=== PATIENT | male | born 1940 | race Caucasian/White ===

== ENCOUNTER 2018-04-15 06:44 | Observation (INO) ==
--- NOTE | 2018-04-15 08:31 | Pre Anesthesia Assessment ---
Date of Service April 15, 2018 Pre Sedation Assessment Vital Signs Temp Pulse Resp BP Pulse Ox 04/15/18 07:32 36.6 C 66 18 133/67 98 Cardiovascular RRR, no murmur, no edema Respiratory normal respiratory effort, lungs clear to auscultation Pre-Sedation Airway Assessment Smoking Status: Former smoker Hx Sleep Apnea: No Short, Thick Neck: No Thyromental Distance: > or= 3.5 Finger Breadths Oral Cavity: + WNL Mallampati Class: IV ASA: ASA3 NPO Status Date of Last Intake of Fluids: 04/14/18 Time of Last Intake of Fluids: 21:00 Date of Last Intake of Solid Food: 04/14/18 Time of Last Intake of Solid Foods: 21:00 Procedure Planning Current Medications Reviewed: Yes Notes The planned sedation has been discussed with the patient. Informed Consent was obtained. I have identified the patient, determined the appropriateness of sedation and have assessed the patient immediately prior to the procedure. All medicine(s) and interventions are by my order.
--- NOTE | 2018-04-15 08:31 | History & Physical Bridge Note ---
Date of Service April 15, 2018 History & Physical Bridge Note I have examined the patient, reviewed the History & Physical and in the interval since the performance of the History & Physical I have noted the following changes of clinical significance: no changes noted
[2018-04-15] MEDS ORDERED: fentaNYL citrate 100 MCG/2 ML VIAL ONE (08:32)
[2018-04-15] MEDS ORDERED: NiCARDipine HCL INJ 2.5 MG/ML 10 ML AMP ONE (08:32)
[2018-04-15] MEDS ORDERED: HEPARIN (PORCINE) 1000 UNIT/ML 10 ML (CATH LAB USE ONLY) ONE (08:32)
[2018-04-15] MEDS ORDERED: MIDAZOLAM HCL 1 MG/ML 2ML VIAL ONE (08:32)
[2018-04-15] MEDS ORDERED: NITROGLYCERIN/D5W 100MCG/ML 20ML SYR ONE (08:33)
--- NOTE | 2018-04-15 09:41 | Cardiac Catheterization ---
Cardiac Cath Procedure: Brief Procedure Date April 15, 2018 Pre-Procedure Diagnosis Pre-Procedure Diagnosis: Angina and Positive Stress Test AUC Score AUC Score: 8 Post-Procedure Diagnosis Post-Procedure Diagnosis: Severe CAD (Two-vessel) Procedure(s) Performed Procedure(s) Performed: Coronary Angiography Agricultural Produce Sorter Kai Yap MD Drilling Machine Runner(s) Prudencio Mendosa RN Estimated Blood Loss Estimated Blood Loss: <15cc Medication(s) Medication(s): Fentanyl (12.5 mcg IV), Heparin, Lidocaine 1% (Local infiltration access site), Nicardipine (300 mcg intra-arterial after arterial sheath placed) and Versed (1 mg IV) Preliminary Findings Right dominant coronary anatomy Two-vessel coronary artery disease with preserved LV systolic function by echocardiogram 100% proximal occlusion of the left circumflex with collateral filling via right -to-left collaterals 95% mid left anterior descending stenosis Left main: Long and large caliber with 20% distal stenosis Left anterior descending: Type II vessel giving rise to a small diffusely diseased first diagonal in its proximal portion and a second large diagonal at the end of its midportion. Within the left anterior descending there is moderate irregularities throughout its proximal third and there is a discrete 95 % stenosis in its midportion proximal to the large second diagonal branch. Left circumflex: Vessel is nondominant. It gives rise to a trivial first marginal branch and a very small second marginal branch then has a 100% occlusion all very shortly after its origin. A large bifurcating obtuse marginal may be seen filling retrograde on injections of the right coronary artery Right coronary artery: Large and dominant distribution. It gives rise to a sinoatrial branch, conus branch, and a large right ventricular branch in its midportion. At the AV groove it gives rise to a large long posterior descending artery reaching to the apex, and along the AV groove two large posterior ventricular branches. Within the right coronary artery there is mild diffuse luminal irregularities and 20-30% narrowing within the proximal portions of the posterior descending artery and both posterior ventricular branches Recommendations Recommendations: PCI without planned CABG Specimens Specimens: None Fluids (cc crystalloids) Fluids (cc crystalloids): 80 Procedural Complication(s) None Disposition PCU
--- NOTE | 2018-04-15 09:47 | Cardiac Catheterization ---
Cardiac Cath Procedure Full Procedure Date April 15, 2018 Pre-Procedure Diagnosis Pre-Procedure Diagnosis: Angina and Positive Stress Test AUC Score AUC Score: 8 Post-Procedure Diagnosis Post-Procedure Diagnosis: Severe CAD (Two-vessel) Procedure(s) Performed Procedure(s) Performed: Coronary Angiography Welt Edge Rounder Kai Yap MD Pnp(s) Prudencio Mendosa RN Estimated Blood Loss Estimated Blood Loss: <15cc Medication(s) Medication(s): Fentanyl (12.5 mcg IV), Heparin, Lidocaine 1% (Local infiltration access site), Nicardipine (300 mcg intra-arterial after arterial sheath placed) and Versed (1 mg IV) Summary of Findings Right dominant coronary anatomy Two-vessel coronary artery disease with preserved LV systolic function by echocardiogram 100% proximal occlusion of the left circumflex with collateral filling via right -to-left collaterals 95% mid left anterior descending stenosis Left main: Long and large caliber with 20% distal stenosis Left anterior descending: Type II vessel giving rise to a small diffusely diseased first diagonal in its proximal portion and a second large diagonal at the end of its midportion. Within the left anterior descending there is moderate irregularities throughout its proximal third and there is a discrete 95 % stenosis in its midportion proximal to the large second diagonal branch. Left circumflex: Vessel is nondominant. It gives rise to a trivial first marginal branch and a very small second marginal branch then has a 100% occlusion all very shortly after its origin. A large bifurcating obtuse marginal may be seen filling retrograde on injections of the right coronary artery Right coronary artery: Large and dominant distribution. It gives rise to a sinoatrial branch, conus branch, and a large right ventricular branch in its midportion. At the AV groove it gives rise to a large long posterior descending artery reaching to the apex, and along the AV groove two large posterior ventricular branches. 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 Stress echocardiography demonstrated anteroapical ischemia at very low level workload with associated ST segment changes relieved at rest post procedure. Resting LV systolic function was normal CAD Presenation: Positive Stress Test and Stable angina (Class III) Anginal Classification: CCS III Heart Failure: No Cardiogenic Shock within 24 Hours: No Cardiac Arrest within 24 Hours: No Imaging Studies Past 6 Months: Yes Stress Studies Past 6 Months: Yes Standard Exercise Test: No Stress Echocardiogram: Yes - Positive and Risk/Extent of Ischemia (High) Stress Testing w/SPECT MPI: No Cardiac CTA: No Coronary Anatomy Dominant: Right Left Main (% Stenosis): Distal (20%) LAD (% Stenosis): Proximal (Mild irregularities) and Mid (95%) D1 (% Stenosis): Proximal (Small vessel diffusely diseased) D2 (% Stenosis): Normal Circumflex (% Stenosis): Proximal (100%) OM1 (% Stenosis): Normal (Trivial vessel) OM2 (% Stenosis): Proximal (Very small diffusely diseased) and Normal OM3 (% Stenosis): Ostial (100% with large bifurcating vessel filling retrograde via right to left collaterals) RCA (% Stenosis): Proximal (Mild irregularity) R PDA (% Stenosis): Proximal (20) R PL1 (% Stenosis): Proximal (30) R PL2 (% Stenosis): Proximal (20) Diagnostic Physicians Name: Kai Yap MD Status: Elective Closure Device Percutaneous Entry Location: Radial Closure Device: Radial Band Recommendations: PCI without planned CABG
[2018-04-15] MEDS ORDERED: CLOPIDOGREL BISULFATE 300 MG TAB ONE (09:53)
[2018-04-15] MEDS ORDERED: ONDANSETRON INJ 2 MG/ML 2 ML VIAL IV PRN (09:55)
[2018-04-15] MEDS ORDERED: SODIUM CHLORIDE 0.9% 1000ML 1,000 ML IV SCH (10:00)
[2018-04-15] MEDS ORDERED: METOPROLOL SUCC 25MG EXT REL TAB PO SCH (12:15)
--- NOTE | 2018-04-15 15:59 | Cardiac Catheterization ---
Cardiac Cath Procedure Full Procedure Date April 15, 2018 Pre-Procedure Diagnosis Pre-Procedure Diagnosis: Angina and Positive Stress Test AUC Score AUC Score: 8 Post-Procedure Diagnosis Post-Procedure Diagnosis: Severe CAD (Two-vessel) and Successful PCI Procedure(s) Performed Procedure(s) Performed: Coronary Angiography and Drug Eluting Stent Instrument Lens Generator Nj Snyder MD Station Operator(s) Adrienne Sanchez RN Estimated Blood Loss Estimated Blood Loss: <15cc Medication(s) Medication(s): Clopidogrel, Fentanyl, Lidocaine 1% (Local infiltration access site), Nicardipine (300 mcg intra-arterial after arterial sheath placed), Nitroglycerin and Versed (1 mg IV) Summary of Findings Indication: Accelerating angina, high risk stress test Access: 6 Liberian right radial artery Catheters: 5 Liberian EBU 3.5 guide Findings: For full details of patient's coronary angiography please cath report dictated by Dr. Yap. Briefly, patient found to have severe multiple vessel disease including a 90 % stenosis involving the mid LAD. Decision to proceed with PCI. -- PCI -- Antithrombotic therapy: Heparin, clopidogrel Procedure: Left main cannulated with EBU 3.5 5 Liberian guide BMW wire passed across lesion into distal vessel Mid LAD lesion predilated with 2.0 compliant balloon Dilated lesion stented with 2.5 x 26 mm Oskar drug-eluting stent Stent post-dilated with 2.75 noncompliant balloon IC vasodilators administered for spasm Post procedure FLORENTIN 3 flow, stent well expanded with minimal residual stenosis and no apparent cardiac complications. Arterial Closure: TR band Summary: 1. 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 If needed for elective procedures antiplatelet therapy could be held at 3 months. 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: Sandwich Board Carrier Cardiac Status Clinical evaluation leading to the procedure CAD Presenation: Positive Stress Test Anginal Classification: CCS III Heart Failure: No Cardiogenic Shock within 24 Hours: No Cardiac Arrest within 24 Hours: No Imaging Studies Past 6 Months: No Stress Studies Past 6 Months: No Diagnostic Physicians Name: Nj Snyder MD Status: Elective Closure Device Percutaneous Entry Location: Radial Closure Device: Radial Band Recommendations: PCI without planned CABG PCI Indication: + Stress Test Lesion Segment Name: mid LAD Culprit Artery: Yes Stenosis Prior to Rx (%): 90 Chronic Total Occlusion: No IVUS: No FFR: No Pre-Procedure FLORENTIN Flow: 3 Previously Treated Lesion: No Lesion Complexity: Non-High/Non-C Lesion Length (mm): 20 Thrombus Present: No Bifurcation Lesion: No Guidewire Across Lesion: Stenosis Post-Procedure (%): 0 Post-Procedure FLORENTIN Flow : 3 Devices(s) Deployed: Yes Yes Intraprocedure Events Significant Disection: No Perforation: No
[2018-04-15] MEDS: METOPROLOL SUCC 25MG EXT REL TAB PO SCH (18:35)
[2018-04-16 06:50] LABS: Mean Corpuscular Hgb Conc 32.7 g/dL (32-36); Nucleated RBC # (auto) 0.07 K/uL (0-0); Nucleated RBC % (auto) 0.9 %; Platelet Count 214 K/uL (130-400)
[2018-04-16 07:25] LABS: Hemoglobin 9.8 g/dL (14.0-18.0); Mean Corpuscular Volume 96.5 fL (80-100); RDW Coefficient of Variation 30.5 % (11.5-14.5); RDW Standard Deviation 104.3 fL (36.4-46.3); Red Blood Count 3.11 M/uL (4.7-6.1); White Blood Count 8.14 K/uL (4.8-10.8)
[2018-04-16 07:31] LABS: ALC (manual) 2.66 K/uL (1.2-3.4); Anisocytosis Present; Basophils # (manual) 0.07 K/uL (0-0.2); Basophils % (manual) 0.9 %; Eosinophils # (manual) 0.07 K/uL (0-0.5); Lymphocytes # (manual) 2.66 K/uL (1.2-3.4); Lymphocytes % (manual) 32.7 %; Metamyelocytes # (manual) 0.07 K/uL (0-0); Metamyelocytes % (manual) 0.9 %; Monocytes # (manual) 1.44 K/uL (0.11-0.59); Monocytes % (manual) 17.7 %; Myelocytes % (manual) 6.2 %; Neutrophils % (manual) 40.7 %; Ovalocytes 1+; Schistocytes Occasional; Tear Drop Cells 1+
[2018-04-16] MEDS: METOPROLOL SUCC 25MG EXT REL TAB PO SCH (08:41)
[2018-04-16] MEDS ORDERED: ASCORBIC ACID 500 MG TAB PO SCH (09:00)
[2018-04-16] MEDS ORDERED: ATORVASTATIN 40 MG TAB PO SCH (09:00)
[2018-04-16] MEDS ORDERED: FERROUS SULFATE 325 MG TAB PO SCH (09:00)
[2018-04-16] MEDS ORDERED: ENALAPRIL MALEATE 10 MG TAB PO SCH (09:00)
[2018-04-16] MEDS ORDERED: NON-FORMULARY MEDICATION (Lutein [Lutein] 20 MG) PO SCH (09:00)
[2018-04-16] MEDS ORDERED: PANTOprazole 40 MG TAB PO SCH (09:00)
[2018-04-16] MEDS ORDERED: CLOPIDOGREL BISULFATE 75 MG TAB PO SCH (09:00)
[2018-04-16] MEDS ORDERED: ASPIRIN 81 MG ECTAB PO SCH (09:00)
[2018-04-16] MEDS ORDERED: CHOLECALCIFEROL 1,000 UNITS TAB PO SCH (09:00)
[2018-04-16] MEDS ORDERED: CYANOCOBALAMIN (VITAMIN B-12) 100 MCG TABLET PO SCH (09:00)
--- NOTE | 2018-04-16 09:53 | Cardiology Progress Note ---
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 Denies cp, sob, palpitation, lightheadedness or dizziness. tele reviewed: sinus rhythm without arrhythmia or significant ectopy. Review of Systems All systems reviewed & are unremarkable except as noted in HPI & below Physical Exam 2 Vital Signs (Past 24 Hours): Last Vital Signs Temp 36.7 C 04/16/18 08:15 Pulse 70 04/16/18 08:15 Resp 20 04/16/18 08:15 BP 136/75 04/16/18 08:15 Pulse Ox 95 04/16/18 08:15 Physical Exam: General: Awake, alert and oriented x 3. No acute distress. HEENT: Normocephalic, atraumatic. Pupils equal, round and reactive to light and accommodation. Extraocular muscles are intact. Anicteric sclera. Moist mucous membranes. Neck: No JVD. No bruit. Cardiovascular: Regular. Positive S-4. Normal S-1 and S-2. No S-3. No murmurs or rubs. Pulmonary: Clear to auscultation B/L. No rales, rhonchi or wheezing Abdomen: Bowel sounds x 4, soft. No rebound, guarding or tenderness. No organomegaly. Extremities: No clubbing, cyanosis or edema. +2 pedal pulses bilaterally. Skin: Warm and dry.
--- NOTE | 2018-04-16 09:57 | Discharge Summary ---
Date of Service April 16, 2018 Principal Diagnosis Principal Diagnosis coronary artery disease Discharge Data Allergies Allergy/AdvReac Type Severity Reaction Status Date / Time Penicillins Allergy Mild Rash Verified 04/15/18 07:17 epinephrine AdvReac Hypotension Verified 04/15/18 07:17 Consultations 04/15/18 09:56 Consult Cardiac Rehabilitation Routine Procedures Performed Operation Date: 04/15/18 08:00 Actual Procedures p Cath, Coronaries ONLY (no LV) - Kai Yap MD s Cineradiography w/Routine Exam - Kai Ypa MD s Drug Eluting Stent SGl Vessel - Judah Snyder MD Ordered Studies 04/15/18 07:03 CL Cath Imgs for PACS use only Routine Hospital Course (1) CAD (coronary artery disease): s/p PCI to culprit lesion of mid LAD with LOIDA small, diffusely diseased diag which will be treated medically 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 MEDICAL DIRECTOR fed via right to left collaterals cont aspirin will give scripts for plavix 75mg daily, metoprolol succinate 25mg daily and atorvastatin 40mg daily my office will arrange f/u with me in 2-4 weeks (2) Macrocytic anemia: stable planned bone marrow biopsy will need to be postponed at least 3 months until plavix may be interrupted Total Time Total Time Spent Total Time Spent (In Minutes): 40 Discharge Plan Discharge Items Patient Disposition: Home - Self-Care Reason For Visit: Abnormal Stress Echo Discharge Diagnosis: coronary artery disease Discharge Goals: Decrease discomfort and Improve function Activity: Resume your previous activity Lifting: Gradually increase as tolerated Bathing: No limitations Sexual Activity: When tolerated Exercise/Sports: Gradually increase as tolerated Driving/Machine Use: Resume 1 day after discharge Non-emergency contact: Primary Care Provider Call non-emergency contact if: you have any medication questions, your pain is worsening and your pain is concerning for you Follow-up/Referrals: Radha Ac [Primary Care Provider] - Diet: Heart Healthy Addtl Provider Instructions: Follow up with your primary care physician in the next 1-2 days. Return to the Emergency Department for any worsening symptoms or any other concerns. Prescriptions: New atorvastatin 40 mg Tablet 40 mg PO QAM Qty: 30 RF: 0 aspirin [Ecotrin Low Strength] 81 mg Tablet,Delayed Release (Dr/Ec) 81 mg PO QAM Qty: 30 RF: 0 metoprolol succinate 25 mg Tablet Extended Release 24 Hr 25 mg PO DAILY Qty: 30 RF: 0 Continue clarithromycin 500 mg Tablet 500 mg BID RF: 0 metronidazole [Flagyl] 500 mg Tablet 500 mg TID RF: 0 ascorbic acid (vitamin C) [Vitamin C] 500 mg Capsule, Extended Release 500 mg PO DAILY RF: 0 quinapril 20 mg Tablet 20 mg PO DAILY RF: 0 simethicone [Gas Relief] 80 mg Tablet,Chewable 80 mg 6XD RF: 0 ferrous sulfate 134 mg (27 mg iron) Tablet 134 mg DAILY RF: 0 omeprazole 20 mg Tablet,Delayed Release (Dr/Ec) 20 mg PO DAILY RF: 0 lutein 20 mg Tablet 20 mg PO DAILY RF: 0 cholecalciferol (vitamin D3) 5,000 units 5,000 units DAILY RF: 0 cyanocobalamin (vitamin B-12) 100 mcg 100 mcg DAILY RF: 0 digestive enzymes 1 cap DAILY RF: 0 Stand-Alone Forms: Count Includes [facility] Discharge Orders: Discharge Order (Routine); Ordered 04/16/18 Ordered By: Lobo Byrd Admission Data Admit Date/Time: 04/15/18 09:16 Attending Provider: Kai Yap Admit Provider: Kai Yap Primary Care Provider: Radha Ac Service: Telemetry
== END 2018-04-16 10:20 | disposition home or self-care (01) ==
LOC: 2E 06:44 → CC 06:44
PROC: CLB.CCO (2018-04-15 08:00)

== ENCOUNTER 2022-03-20 07:12 | Inpatient (IN) ==
[2022-03-20] MEDS ORDERED: HEPARIN (PORCINE) 1000 UNIT/ML 10 ML (CATH LAB USE ONLY) ONE (08:04)
[2022-03-20] MEDS ORDERED: niCARdipine HCL INJ 2.5 MG/ML 10 ML AMP ONE (08:04)
[2022-03-20] MEDS ORDERED: MIDAZOLAM HCL 1 MG/ML 2ML VIAL ONE (08:05)
[2022-03-20] MEDS ORDERED: fentaNYL citrate 100 MCG/2 ML VIAL ONE (08:05)
[2022-03-20] MEDS ORDERED: NITROGLYCERIN/D5W 100MCG/ML 20ML SYR ONE (08:06)
--- NOTE | 2022-03-20 08:49 | Pre Anesthesia Assessment ---
Date of Service March 20, 2022 Pre Sedation Assessment Vital Signs Pulse Resp BP Pulse Ox O2 Del Method 03/20/22 07:28 68 16 132/70 100 Room Air Cardiovascular RRR, no murmur, no edema Respiratory normal respiratory effort, lungs clear to auscultation Pre-Sedation Airway Assessment Smoking Status: Never smoker Hx Sleep Apnea: No Short, Thick Neck: No Thyromental Distance: > or= 3.5 Finger Breadths Oral Cavity: + WNL Mallampati Class: II ASA: ASA2 NPO Status Date of Last Intake of Fluids: 03/19/22 Time of Last Intake of Fluids: 21:00 Date of Last Intake of Solid Food: 03/19/22 Time of Last Intake of Solid Foods: 21:00 Procedure Planning Contraindications for Sedation: none Current Medications Reviewed: Yes Notes The planned sedation has been discussed with the patient. Informed Consent was obtained. I have identified the patient, determined the appropriateness of sedation and have assessed the patient immediately prior to the procedure. All medicine(s) and interventions are by my order.
[2022-03-20] MEDS ORDERED: SODIUM CHLORIDE 0.9% 1000ML 1,000 ML IV SCH (09:45)
[2022-03-20] MEDS ORDERED: ACETAMINOPHEN 325 MG TAB PO PRN (09:45)
[2022-03-20] MEDS ORDERED: SODIUM CHLORIDE 0.9% 500 ML IV PRN (09:45)
--- NOTE | 2022-03-20 09:47 | Cardiac Catheterization ---
Cardiac Cath Procedure Full Procedure Date March 20, 2022 Pre-Procedure Diagnosis Pre-Procedure Diagnosis: Angina (Crescendo) AUC Score AUC Score: 8 Post-Procedure Diagnosis Post-Procedure Diagnosis: Severe CAD (Distal left main) Procedure(s) Performed Procedure(s) Performed: Coronary Angiography and Left Heart Cath Animated Cartoons Painter Kai Yap MD Development Vice President(s) [facility] Estimated Blood Loss Estimated Blood Loss: Less than 15 cc Medication(s) Medication(s): Fentanyl (12.5 mcg IV), Lidocaine 1% (Local infiltration access site) and Versed (1 mg IV) Summary of Findings Impression: Heavily calcified right dominant coronary anatomy Severe distal left main stenosis, 80% with calcification and thrombus Patent left anterior descending stent Left circumflex chronic occlusion ostially with collateral fill Procedure: Left heart catheterization, coronary angiography Access: Right femoral artery Catheters: 5 Bolivian sheath, 5 Bolivian JL 4 5 Bolivian 3 DRC, 5 Bolivian straight pigtail Coronary angiography: Right dominant anatomy Left main: Relatively long in length, normal overall caliber with moderate calcification. The left main has an 80% stenosis in its distal portion with calcification and thrombus Left anterior descending: Type II in distribution. It gives rise to 3 large septal branches a trivial first diagonal branch and then a large bifurcating second diagonal branch in its midportion. The second diagonal parallels the left anterior descending to the apex. There is a widely patent stent in the mid left anterior descending. The proximal left anterior descending is long areas of 30% stenosis with a 40 to 50% stenosis at the distal end of the stent and just proximal to the second diagonal branch. Left circumflex: Moderately large vessel with 100% occlusion shortly after its origin. The distal vessel fills as a large obtuse marginal via right to left collaterals Right coronary artery: Very large caliber dominant distribution vessel. It gives rise to a conus and sinoatrial branch shortly after its origin to right ventricular branches in its midportion, and at the AV groove a long posterior descending artery and along the AV groove 2 large posterior ventricular branches. The right coronary has diffuse ectasia and moderate irregularities. The most inferior posterior ventricular branch has a 50% narrowing. 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 Any exceptions are noted below. 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 Cardiac Status Clinical evaluation leading to the procedure 81-year-old male with known coronary disease, prior mid left anterior descending stent, left circumflex occlusion and distal left main disease who recently experienced increasing anginal symptoms at low-level threshold of exertion CAD Presenation: Stable angina Anginal Classification: CCS III Heart Failure: No Cardiogenic Shock within 24 Hours: No Cardiac Arrest within 24 Hours: No Imaging Studies Past 6 Months: No Stress Studies Past 6 Months: No Standard Exercise Test: No Stress Echocardiogram: No Stress Testing w/SPECT MPI: No Cardiac CTA: No Coronary Anatomy Dominant: Right Left Main (% Stenosis): Distal (80% with calcification and thrombus) LAD (% Stenosis): Mid (Patent stent, 50% after stent) D1 (% Stenosis): Proximal (Thin diffusely disease) D2 (% Stenosis): Normal (Very large bifurcating vessel paralleling the left anterior descending) Circumflex (% Stenosis): Proximal (100% with distal fill via robust collaterals from the right coronary artery) OM1 (% Stenosis): Normal L PL1 (% Stenosis): Mid RCA (% Stenosis): Proximal (Moderate ectasia and luminal irregularities) R PDA (% Stenosis): Mid (Mild irregularities) R PL1 (% Stenosis): Mid (50) Left Ventricular Angiography EF (%): N/A Diagnostic Physicians Name: Kai Yap MD Status: Elective Closure Device Percutaneous Entry Location: Femoral Closure Device: None-Manual Hold Recommendations: CABG
[2022-03-20] MEDS ORDERED: LIDOCAINE 1% LOCAL 20 ML VIAL ONE (10:02)
[2022-03-20] MEDS ORDERED: HEPARIN 25000 UNIT/500 ML D5W IV ONE (10:09)
--- NOTE | 2022-03-20 10:33 | Communication Note ---
Date of Service: March 20, 2022 Patient seen and examined post cardiac catheterization. Right groin insertion site intact. Results of cardiac catheterization discussed in detail with patient and Study demonstrated 80% calcified and thrombotic stenosis of the distal left main, chronic 100% occlusion of the proximal circumflex. Plan: Patient will be transferred to [facility] for further evaluation. Discussed surgical intervention versus increased risk coronary invention given left circumflex occlusion IV heparin infusion begun
[2022-03-20] MEDS ORDERED: HEPARIN SODIUM/DEXTROSE 25,000 UNITS/500 ML BAG IV SCH (10:45)
[2022-03-20] MEDS ORDERED: DARBEPOETIN ALFA IN POLYSORBAT SQ SCH (16:45)
[2022-03-20 17:38] LABS: Partial Thromboplastin Ratio 1.9
[2022-03-20 17:39] LABS: Partial Thromboplastin Time 51.3 Seconds (21.0-31.0)
[2022-03-21] MEDS ORDERED: CHOLECALCIFEROL 5,000 UNITS 125 MCG TAB PO SCH (09:00)
[2022-03-21] MEDS ORDERED: ISOSORBIDE MONO EXTENDED REL 60 MG TABCR PO SCH (09:00)
[2022-03-21] MEDS ORDERED: PANTOprazole 40 MG TAB PO SCH (09:00)
[2022-03-21] MEDS ORDERED: NON-FORMULARY MEDICATION (Lutein 20 mg Tablet) PO SCH (09:00)
[2022-03-21] MEDS ORDERED: CYANOCOBALAMIN (B-12) 100 MCG TABLET PO SCH (09:00)
[2022-03-21] MEDS ORDERED: ATORVASTATIN 40 MG TAB PO SCH (09:00)
[2022-03-21] MEDS ORDERED: METOPROLOL SUCC 50MG EXT REL TAB PO SCH (09:00)
[2022-03-21] MEDS ORDERED: ASPIRIN 81 MG ECTAB PO SCH (09:00)
== END 2022-03-20 19:47 | disposition short-term general hospital (02) | DRG 287 ==
LOC: CC 07:12 → 2S 12:40